=== PATIENT | male | born 1960 | race Caucasian/White ===

== ENCOUNTER 2022-03-03 08:06 | Day surgery (SDC) | payer BC ==
[~2022-03-03] VITALS: Ht 185.4 cm; Wt 97.3 kg
[~2022-03-03 08:06] MED LIST: ALPR.5 PO; CYCL10 PO; MELO7.5 PO; ZESTRIL40 M1 PO
== END 2022-03-03 10:00 | disposition home or self-care (01) ==
LOC: ORSCSDS 08:06
PROVIDERS: Ophthalmology
PROC: 08RK3JZ Replacement of Left Lens with Synthetic Substitute, Percutaneous Approach (ICD-10-PCS; principal; 2022-03-03 09:30)
DX: H25.12 Age-related nuclear cataract, left eye (principal); H21.81 Floppy iris syndrome; I10 Essential (primary) hypertension; Z79.899 Other long term (current) drug therapy
CPT/HCPCS: J2001; J2250; J3010; J3301; J7040; V2632

== ENCOUNTER 2022-03-10 09:45 | Day surgery (SDC) | payer BC ==
[~2022-03-10] VITALS: Ht 185.4 cm; Wt 95.9 kg
--- NOTE | 2022-03-10 10:34 | NUR ---
03/10/22 Nikia Sorensen @ 1010, WILLARD @ 1012
== END 2022-03-10 11:32 | disposition home or self-care (01) ==
LOC: ORSCSDS 09:45
PROVIDERS: Ophthalmology
PROC: 08RJ3JZ Replacement of Right Lens with Synthetic Substitute, Percutaneous Approach (ICD-10-PCS; principal; 2022-03-10 11:00)
DX: H25.11 Age-related nuclear cataract, right eye (principal); I10 Essential (primary) hypertension; Z79.899 Other long term (current) drug therapy
CPT/HCPCS: J2001; J2250; J3010; J3301; J7040; V2632